=== PATIENT | female | born 1965 | race Caucasian/White ===

== ENCOUNTER 2018-11-19 12:09 | Day surgery (SDC) | payer OTHER ==
[2018-11-19] MEDS ORDERED: PROPOFOL 200 MG INJ (15:20)
[2018-11-19] MEDS ORDERED: LIDOCAINE 2% (SDV) 5 ML INJ (15:20)
[2018-11-19] MEDS ORDERED: PROPOFOL 40 ML (15:20)
[2018-11-19] MEDS ORDERED: FENTAnyl 50 MCG/ML VIAL (15:20)
== END 2018-11-19 18:07 | disposition home or self-care (01) ==
LOC: GIL 12:09
DX: K29.70 Gastritis, unspecified, without bleeding (principal)
CPT/HCPCS: 43239; 84703; 88305; 88312